=== PATIENT | female | born 1960 | race Caucasian/White ===

== ENCOUNTER 2017-02-16 20:00 | Emergency (ER) | payer OTHER ==
[~2017-02-16] VITALS: Ht 162.6 cm; Wt 53.5 kg
[2017-02-16 21:04] LABS: BASOPHIL % 0.7 % (0-2); PLATELET COUNT 239 x10^3mcL (130-400)
[2017-02-16 21:06] LABS: RED CELL DISTRIBUTION WIDTH 14.8 % (11.5-14.5)
[2017-02-16 21:11] LABS: CALCIUM 9.1 mg/dL (8.5-10.1); CARBON DIOXIDE 25.7 mmol/L (21-32); CREATININE SERUM 1.1 mg/dL (0.6-1.0); POTASSIUM SERUM 3.4 mmol/L (3.5-5.1)
[2017-02-16 21:15] LABS: ALBUMIN 3.8 g/dL (3.4-5.0); BILIRUBIN TOTAL 0.41 mg/dL (0.20-1.00)
[2017-02-16 21:27] LABS: UA SPECIFIC GRAVITY 1.025 (1.005-1.035); microscopic required? YES; urine erythrocyte 2+ (NEGATIVE)
[2017-02-16 22:27] VITALS: BP 120/82
== END 2017-02-16 22:27 | disposition home or self-care (01) ==
LOC: ED 20:00
PROVIDERS: Emergency Medicine
DX: M79.1 Myalgia (principal); R53.1 Weakness; R51 Headache; I25.2 Old myocardial infarction; Z79.899 Other long term (current) drug therapy; Z88.0 Allergy status to penicillin
CPT/HCPCS: 36415; J1885; Q0092

== ENCOUNTER 2017-12-02 13:49 | Emergency (ER) | payer OTHER ==
[~2017-12-02] VITALS: Ht 162.6 cm; Wt 54.4 kg
[2017-12-02 14:11] VITALS: Ht 162.6 cm; Wt 54.4 kg
[2017-12-02 15:10] VITALS: BP 97/55
== END 2017-12-02 15:10 | disposition home or self-care (01) ==
LOC: ED 13:49
DX: J20.9 Acute bronchitis, unspecified (principal); Z88.0 Allergy status to penicillin

== ENCOUNTER 2018-01-14 10:51 | Emergency (ER) | payer OTHER ==
[~2018-01-14] VITALS: Ht 162.6 cm; Wt 52.2 kg
[2018-01-14 11:15] VITALS: Ht 162.6 cm; Wt 52.2 kg
[2018-01-14 12:29] VITALS: BP 121/78
== END 2018-01-14 12:29 | disposition home or self-care (01) ==
LOC: ED 10:51
DX: S42.001A Fracture of unspecified part of right clavicle, initial encounter for closed fracture (principal); I10 Essential (primary) hypertension; E78.00 Pure hypercholesterolemia, unspecified; Z88.0 Allergy status to penicillin; V19.9XXA Pedal cyclist (driver) (passenger) injured in unspecified traffic accident, initial encounter; Y93.89 Activity, other specified; Y92.89 Other specified places as the place of occurrence of the external cause; Y99.8 Other external cause status

== ENCOUNTER 2019-08-28 20:20 | Inpatient (IN) | payer MEDICAID ==
[~2019-08-28] VITALS: Ht 162.6 cm; Wt 56.7 kg
--- NOTE | 2019-08-28 20:44 | NUR ---
DAUGHTER, KAREN, STATING IF DR NEEDS ANY INFO/QUESTIONS TO PLEASE CALL HER AT [phone].
--- NOTE | 2019-08-28 21:00 | NUR ---
PATIENT SEEN WITH COMPLAINT OF EPIGASTRIC PAIN 1 HOUR LENS DOTTER. SEEN MOANING/GROANING. FAMILY REPORTS PATIENT WAS RECENTLY DISCHARGED FROM THE HOSPITAL, WAS TREATED FOR LIVER AND PANCREAS PROBLEM. PATIENT WAS SEEN BY . SALINE LOCK INSERED POST A FEW ATTEMPTS. PATIENT MEDICATED WITH S/L ZOFRAN. SALINE FLUID IS INFUSING @ 150 ML/HR. PATIENT INSTRUCTED TO GIVE URINE SPECIMEN, BUT IA UNABLE TO VOID AT THIS TIME. PATIENT WAS MEDICATED WITH MORPHINE AND PEPCID.
[2019-08-28 21:34] LABS: BASOPHIL % 0.1 % (0-2); CALCIUM 8.4 mg/dL (8.5-10.1); CARBON DIOXIDE 29.4 mmol/L (21-32); CHLORIDE SERUM 100 mmol/L (98-107); CREATININE SERUM 0.9 mg/dL (0.6-1.0); GFR1 > 60 mL/min; GLUCOSE SERUM 160 mg/dL (74-106); PLATELET COUNT 294 x10^3mcL (130-400); POTASSIUM SERUM 4.5 mmol/L (3.5-5.1); SODIUM SERUM 135 mmol/L (136-145)
[2019-08-28 21:36] LABS: RED CELL DISTRIBUTION WIDTH 24.8 % (11.5-14.5)
[2019-08-28 21:43] LABS: ALKALINE PHOSPHATASE 197 U/L (46-116); ALT/SGPT 297 U/L (14-59); BILIRUBIN TOTAL 5.82 mg/dL (0.20-1.00); LIPASE 614 IU/L (73-393); TOTAL PROTEIN, SERUM 7.9 g/dL (6.4-8.2)
[2019-08-28 21:44] LABS: ALBUMIN 2.7 g/dL (3.4-5.0)
[2019-08-28 21:45] LABS: AST/SGOT 199 U/L (15-37)
[2019-08-28 21:59] LABS: rbc morphology (normal/abnorm) ABNORMAL (NORMAL)
--- NOTE | 2019-08-28 22:44 | NUR ---
PATIENT IS RESTING, CARDIAC SCOPE IS SINUS WITH PVC'S.
--- NOTE | 2019-08-28 23:12 | NUR ---
PATIENT IS SLEEPING, NO DISTRESS.
--- NOTE | 2019-08-29 00:03 | NUR ---
PATIENT WOKE UP, AND CALL ON THE [facility] TO SAY SHE IS IN PAIN. PATIENT CLAIM, THE PAIN MEDICATION DID NOT HELP. HOWEVER SHE WAS SLEEPING. PATIENT EXPRESS 10/10 PAIN SCALE. NOTIFIED.
[2019-08-29 01:00] LABS: T3 TOTAL 0.9 ng/mL
[2019-08-29] MEDS ORDERED: FOSAMAX70 M1 PO (01:00)
[2019-08-29] MEDS ORDERED: COUMADIN3 MG PO (01:01)
[2019-08-29] MEDS ORDERED: METOPROLOL SUCC25 M2 PO (01:03)
[2019-08-29] MEDS ORDERED: COUMADIN5 MG PO (01:04)
[2019-08-29] MEDS ORDERED: DIGOX0.125 MG PO (01:05)
[2019-08-29] MEDS ORDERED: CETIRIZINE HYDR10 MG PO (01:06)
[2019-08-29] MEDS ORDERED: FLONS (01:07)
--- NOTE | 2019-08-29 01:17 | NUR ---
REPORT WAS GIVEN TO SWAPNA. MED RECON WAS DONE. PATIENT WILL BE TRANSPORTED TO ROOM 236B. 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 USE ASSISTIVE DEVICE.
--- NOTE | 2019-08-29 01:19 | NUR ---
PATIENT HAS NOT YET VOID FOR UA COLLECTION.
[2019-08-29 01:29] LABS: FREE T4 1.04 ng/dL (0.76-1.46); FREE THYROXINE INDEX 2.7 ug/dL (1.4-4.5); T4(THYROXINE) 8.2 ug/dL (4.7-13.3)
--- NOTE | 2019-08-29 02:12 | NUR ---
PATIENT WENT TO XRAY AND RETURN TO THE ROOM
--- NOTE | 2019-08-29 02:28 | NUR ---
PATIENT ARRIVED FROM ED VIA [facility] ACCOMPANIED BY ED NURSE. BELONGINGS AT BEDSIDE. POOR HISTORIAN. PATIENT ASSISTED TO BATHROOM; AMBULATORY WITH ASSISTANCE. UNSTEADY AND SLOW GAIT NOTED. 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 A/OX4. ABLE TO MAKE NEEDS KNOWN. CLEAR AND APPROPAITE SPEECH NOTED. RIGHT SIDED FACIAL DROOP NOTED. DENIES DIZZINESS AND SR. BREATHING EVEN AND UNLABORED ON ROOM AIR. NO SOB OR RESP DISTRESS NOTED. DENIES CHEST PAIN. TELE #31, AFIB, HR 89. PATIENT DOES NOT REMEMBER IF SHE HAS A HX OF AFIB. DR PACHECO NOTIFIED. DENIES PALPITATIONS. LEFT SIDED PACEMAKER. ABD DISTENTION NOTED, ABD SOFT. DENIES N/V AT THIS TIME. EDUCATED PATIENT ON NPO STATUS. IV TO THE LAC, 22G, INFUSING NS FROM ED. PATENT AND INTACT. NO REDNESS OR SWELLING NOTED. COMFORT AND SAFETY MEASURES IN PLACE. BED IS LOCKED AND IN THE LOWEST POSITION. SIDE RAILS UP X2. ORIENTED PATIENT TO ROOM, CALL LIGHT SYSTEM AND BED CONTROLS. CALL LIGHT IS WITHIN REACH. WILL CONTINUE TO MONITOR.
--- NOTE | 2019-08-29 03:04 | NUR ---
NOTIFIED DR PACHECO ABOUT CT ABD/PELVIS RESULTS. NO NEW ORDERS AT THIS TIME
[2019-08-29 03:36] VITALS: BP 127/70
[2019-08-29 04:08] LABS: microscopic required? NO
[2019-08-29 04:11] LABS: urine erythrocyte NEGATIVE (NEGATIVE)
[2019-08-29 05:51] VITALS: BP 96/63
--- NOTE | 2019-08-29 06:19 | NUR ---
C/O 6/10 EPIGASTRIC PAIN. TORADOL IVP GIVEN. NO DISTRESS NOTED. MED EDUCATION GIVEN. WILL CONTINUE TO MONITOR.
--- NOTE | 2019-08-29 06:43 | NUR ---
RESTED SINCE ARRIVAL. NO DISTRESS NOTED. BREATHING EVEN AND UNLABORED ON ROOM AIR. NO SOB NOTED. DENIES N/V. IVF INFUSING WELL. DENIES CHEST PAIN. ALL NEEDS AND CONCERNS ADDRESSED. SAFETY MEASURES IN PLACE. CALL LIGHT IS WITHIN REACH. WILL ENDORSE CARE TO DAY SHIFT RN.
--- NOTE | 2019-08-29 07:30 | NUR ---
SEEN IN BED AWAKE,ALERT, ORIENTED X3. SLOW BUT CLEAR SPEECH, RIGHT FACIAL DROOP. GEN BODY WEAKESS, GREATHER ON RIGHT SIDE FROM PREVIOUS HX OF CVA. ON TELE# 31 AFIB, PACE ON DEMAND, HR=85. DENIES CHEST PAIN. STATED ABDN PAIN IS RELIEF FROM TORADOL GIVEN. KEPT NPO, PATIENT MADE AWARE. IVF NS TO LAC INFUSING WELL. CALL LIGHT PLACED WITHIN EASY REACH, SIDERAILS UP X2.
[2019-08-29 08:35] VITALS: BP 99/64
--- NOTE | 2019-08-29 11:40 | NUR ---
SEEN BY DOCTOR WARREN, PATIENT STATED THAT SHE UNDERSTAND THE PLAN OF CARE AND DOCTOR ALREADY EXPLAINED TO HER REGUARDING ENDOSCOPIC RETROGRADE CHOLANGIOPANCREATOGRAPHY. CONSENT SIGNED BY PATIENT WHO IS AWAKE, ALERT, ORIENTED X4.
--- NOTE | 2019-08-29 11:57 | NUR ---
SPOKE WITH DR KELLEY PER PHONE. DR HAD SEEN PATIENT 1 HOUR AGO AND ORDERED ERCP FOR FRIDAY. 20 MIN LATER HE CALLED AND INFORMED NURSING STAFF THAT HE WILL DO THE ERCP TODAY AT NOON. PATIENT HAD ALREADY DRUNK PO CONTRAST FOR SB FOLLOW-UP THROUGH. DR BUSBY WAS CALLED AND NOTIFIED. HE CANCELLED THE ERCP FOR TODAY. ERCP WILL NOW BE DONE ON Friday08/31/19.
[2019-08-29 12:26] VITALS: BP 116/77
--- NOTE | 2019-08-29 15:16 | NUR ---
REGULAR DIET PROVIDED PER DOCTOR'S ORDER. DENIES PAIN OR NAUSEA.
[2019-08-29 17:43] VITALS: BP 101/54
--- NOTE | 2019-08-29 18:32 | NUR ---
TOLERATED TO REGULAR DIET. DENIES ABDN PAIN OR NAUSEA AT THIS TIME. ABLED TO AMBULATE TO BATHROOM WITH SLOW/STEADY GAIT. HEPARIN SQ PROPHYLAXIS GIVEN PER DOCTOR'S ORDER. VSS. ALL NEEDS ATTENDED.
--- NOTE | 2019-08-29 19:05 | NUR ---
REPORT RECEIVED FROM DAY SHIFT RN. PATIENT WAS SEEN SITTING ON BEDSIDE CHAIR. NO DISTRESS NOTED. BREATHING EVEN AND UNLABORED. NO SOB OR RESP DISTRESS NOTED. ON ROOM AIR. DENIES CHEST PAIN. NO C/O PAIN. DENIES N/V. IV TO THE LAC INFUSING WELL. PATENT AND INTACT. NO REDNESS OR SWELLING NOTED. COMFORT AND SAFETY MEASURES IN PLACE. BED IS LOCKED AND IN THE LOWEST POSITION. SIDE RAILS UP X2. CALL LIGHT IS WITHIN REACH. WILL CONTINUE TO MONITOR
--- NOTE | 2019-08-29 20:00 | NUR ---
PATIENT IS AFIB WITH RVR, HR SUSTAINING B/W 110-130. CHECKED ON PATIENT. PATIENT MOVED FROM BEDSIDE CHAIR TO BED. RESTING IN BED COMFORTABLY. NO DISTRESS NOTED. DENIES CHEST PAIN/PRESSURE. WILL CONTINUE TO MONITOR. PATIENT.
[2019-08-29 20:04] VITALS: BP 107/65
--- NOTE | 2019-08-29 20:10 | NUR ---
BP CHECKED 107/65 (75). HR B/W 80-130. NO DISTRESS NOTED. DENIES CHEST PAIN. CHARGE NURSE AWARE. WILL CONTINUE TO MONITOR.
--- NOTE | 2019-08-29 20:20 | NUR ---
DR PACHECO NOTIFIED ABOUT AFIB RVR AND HR.
--- NOTE | 2019-08-29 22:10 | NUR ---
STAT EKG DONE. NOTIFIED DR PACHECO AND YOVANI. NO NEW ORDERS AT THIS TIME. PATIENT DENIES CHEST PAIN/PRESSURE. WILL CONTINUE TO MONITOR PATIENT.
--- NOTE | 2019-08-30 00:47 | NUR ---
RESTING IN BED WITH EYES CLOSED. NO DISTRESS NOTED. NO S/S OF PAIN NOTED. BREATHING EVEN AND UNLABORED ON ROOM AIR. IVF INFUSING WELL. SAFETY MEASURES IN PLACE. CALL LIGHT IS WITHIN REACH. WILL CONTINUE TO MONITOR.
--- NOTE | 2019-08-30 03:04 | NUR ---
RESTING IN BED WITH EYES CLOSED. NO DISTRESS NOTED. BREATHING EVEN AND UNLABORED. NO SOB NOTED. IVF INFUSING WELL. SAFETY MEASURES IN PLACE. NO DISTRESS NOTED HR 107. CALL LIGHT IS WITHIN REACH. WILL CONTINUE TO MONITOR
[2019-08-30 04:32] VITALS: BP 94/61
--- NOTE | 2019-08-30 05:42 | NUR ---
DR SHEETS CALLED, HE WILL DO THE ERCP TODAY. PER SUDEEP, HEPARIN WILL BE ON HOLD. PATIENT IS NPO AT THIS TIME. DR PACHECO IS AWARE.
--- NOTE | 2019-08-30 06:45 | NUR ---
RESTING IN LONG INTERVALS THROUGHOUT THE NIGHT. NO ACUTE CHANGES NOTED. BREATHING EVEN AND UNLABORED. DENIES SOB AND CHEST PAIN. NO C/O PAIN. IVF INFUSING WELL. HR 94. NPO AT THIS TIME FOR POSS ERCP TODAY. SAFETY MEASURES IN PLACE. ALL NEEDS AND CONCERNS ADDRESSED. CALL LIGHT IS WITHIN REACH. WILL ENDORSE CARE TO DAY SHIFT RN.
[2019-08-30 06:54] LABS: BASOPHIL % 0.1 % (0-2); PLATELET COUNT 218 x10^3mcL (130-400)
[2019-08-30 07:05] LABS: RED CELL DISTRIBUTION WIDTH 24.5 % (11.5-14.5)
--- NOTE | 2019-08-30 07:10 | NUR ---
SEEN IN BED AWAKE,ALERT, ORIENTEDX3. NO RESP DISTRESS NOTED ON ROOM AIR. TELE#31 AFIB XS=345. GEN BODY WEAKNESS, GREATHER ON RIGHT SIDED FROM PREVIOUS HX OF CVA. ABLE TO AMBULATE WITH SLOW STEADY GAIT TO BATHROOM. STATED VOIDS FREELY. KEPT NPO. IVF NS TO LAC INFUSING WELL AT 70ML/HR. CALL LIGHT PLACED WITHIN EASY REACH. SIDERAILS UP X2.
[2019-08-30 07:33] VITALS: BP 107/73
[2019-08-30 07:33] LABS: CALCIUM 8.1 mg/dL (8.5-10.1); CARBON DIOXIDE 24.4 mmol/L (21-32); CHLORIDE SERUM 105 mmol/L (98-107); CREATININE SERUM 0.7 mg/dL (0.6-1.0); GFR1 > 60 mL/min; GLUCOSE SERUM 95 mg/dL (74-106); PHOSPHOROUS 3.5 mg/dL (2.5-4.9); POTASSIUM SERUM 3.9 mmol/L (3.5-5.1); SODIUM SERUM 137 mmol/L (136-145)
[2019-08-30 10:19] LABS: rbc morphology (normal/abnorm) ABNORMAL (NORMAL)
[2019-08-30 10:21] LABS: ovalocyte/elliptocyte 1+
--- NOTE | 2019-08-30 11:33 | NUR ---
UPDATED CURRENT CONDITION AND PLAN OF CARE TO PATIENT'S DAUGHTER LORENZO.
[2019-08-30 11:59] VITALS: BP 95/55
--- NOTE | 2019-08-30 13:55 | NUR ---
PATIENT AND HER SPOUSE MADE AWARE THAT ERCP IS SCHEDULED TODAY AT 18:00PM. KEPT NPO. DENIES PAIN, STATED JUST HUNGRY. IVF NS CONTINUED AT 70ML/HR.
[2019-08-30 16:00] VITALS: BP 101/59
--- NOTE | 2019-08-30 17:09 | NUR ---
NO ANY DISTRESS THROUGHOUT SHIFT. DENIES CHEST PAIN OR CHEST PRESSURE. AFIB WITH OCCATIONAL RVR, DOCTOR ANDREA MADE AWARE. KEPT NPO FOR ERCP. BRP. IVF NS TO LAC INFUSING WELL.
--- NOTE | 2019-08-30 17:26 | NUR ---
Discount pharmacy card and list to low cost medical clinics given to patient by Damion Healy.
--- NOTE | 2019-08-30 17:52 | NUR ---
OFF FLOOR VIA [facility] TO OR. NO ANY DISTRESS NOTED.
--- NOTE | 2019-08-30 19:30 | NUR ---
RECEIVED PT FROM OR,S/P ERCP. ALERT AND ORIENTED. KEPT COMFORTABLE IN BED. RESP. EVEN AND UNLABORED. ON ROOM AIR, LUNG SOUNDS CLEAR BILAT. ON ROOM AIR, NO ACUTE DISTRESS NOTED. DENIES CP OR ANY DISCOMFORT AT THIS TIME. AFIB ON THE MONITOR. AFEBRILE AND VITAL SIGNS STABLE. IVF, NS AT 70ML/HR, INTACT AND INFUSING VIA LAC, SITE CLEAR. FAMILY AT THE BEDSIDE. SANDWICH AND JUICE GIVEN. CALL LIGHT WITHIN REACH. WILL CONTINUE TO MONITOR.
[2019-08-30 20:14] VITALS: BP 116/72
--- NOTE | 2019-08-31 02:03 | NUR ---
RESTING QUIETLY IN BED, WITH EYES CLOSED, APPEARS ASLEEP, EASILY AROUSABLE. RESP. EVEN AND UNLABORED. ON ROOM AIR, NO ACUTE DISTRESS NOTED. CALL LIGHT WITHIN REACH. WILL CONTINUE TO MONITOR.
[2019-08-31 05:19] VITALS: BP 101/64
--- NOTE | 2019-08-31 06:15 | NUR ---
SLEPT WELL. NO SIGNIFICANT CHANGE NOTED IN PT,S CONDITION. DUE MEDS GIVEN ORDERED, AMY. WELL. AFEBRILE AND VITAL SIGNS STABLE. RESP. EVEN AND UNLABORED. NO ACUTE DISTRESS NOTED. IVF INTACT AND INFUSING WELL, SITE CLEAR. VOIDING FREELY. HAD X1 LOOSE BM. KEPT COMFORTABLE. CALL LIGHT WITHIN REACH. WILL CONTINUE TO MONITOR.
[2019-08-31 06:31] LABS: BASOPHIL % 0.2 % (0-2); PLATELET COUNT 193 x10^3mcL (130-400)
[2019-08-31 06:44] LABS: RED CELL DISTRIBUTION WIDTH 24.1 % (11.5-14.5)
--- NOTE | 2019-08-31 07:20 | NUR ---
SEEN AOX4, R SIDED FACIAL DROOP WITH R SIDED WEAKNESS, TELE 31, AFIB , NO CHEST PAIN, PALPABLE PULSES, EDEMA B/L, 3+, CTA ON BLF, ON ROOM AIR, ACTIVE BS, LAST BM 08/30/19, VOID WITH NO DYSURIA, GENERALIZED WEAKNESS, LIMITED ROM , RUE AND RLE, ECCHYMOSIS NOTED ON BUE, NO PAIN AT THIS TIME, IV NS INFUSING AT 70CC/HR AT LAC , NO REDNESS OR INFILTRATION. CALL LIGHT WITHIN REACH. BED AT LOWEST POSITION.
[2019-08-31 07:56] LABS: ALKALINE PHOSPHATASE 172 U/L (46-116); ALT/SGPT 263 U/L (14-59); AST/SGOT 252 U/L (15-37); BILIRUBIN TOTAL 5.5 mg/dL (0.20-1.00); CALCIUM 8.2 mg/dL (8.5-10.1); CARBON DIOXIDE 25.2 mmol/L (21-32); CHLORIDE SERUM 107 mmol/L (98-107); CREATININE SERUM 0.8 mg/dL (0.6-1.0); GFR1 > 60 mL/min; GLUCOSE SERUM 76 mg/dL (74-106); LIPASE 572 IU/L (73-393); POTASSIUM SERUM 3.9 mmol/L (3.5-5.1); SODIUM SERUM 139 mmol/L (136-145); TOTAL PROTEIN, SERUM 6.6 g/dL (6.4-8.2)
[2019-08-31 08:02] LABS: ALBUMIN 2.2 g/dL (3.4-5.0)
[2019-08-31 09:04] VITALS: Ht 162.6 cm; Wt 56.7 kg
[2019-08-31 09:08] VITALS: BP 97/59
--- NOTE | 2019-08-31 09:18 | NUR ---
SEEN AOX4, NOT IN DISTRESS, NO SUBJECTIVE COMPLAINTS, PO MEDICATIONS GIVEN, FLUTICASON INTRANASAL SPRAY APPLIED TO NARES.
--- NOTE | 2019-08-31 09:36 | NUR ---
PAGED DR RUIZ FOR LOW CALCIUM RESULTS 8.2. WAITING FOR CALLBACK
[2019-08-31 09:45] LABS: rbc morphology (normal/abnorm) ABNORMAL (NORMAL); target cell (codocyte) 2+; tear drop cell (dacryocyte) 1+
[2019-08-31] MEDS ORDERED: IMURAN50 MG PO (12:53)
[2019-08-31 13:12] VITALS: BP 97/59
[2019-08-31 13:24] VITALS: BP 105/61
--- NOTE | 2019-08-31 14:00 | NUR ---
SEEN AOX4, NO COMPLAINTS OF PAIN, HEPARIN SQ GIVEN AT ABD
[2019-08-31] MEDS ORDERED: GOOD SENSE OMEP20 MG PO (14:04)
--- NOTE | 2019-08-31 15:00 | NUR ---
DISCHARGE INSTRUCTIONS GIVEN. INSTRUCTED TO FF UP WITH PCP WITHIN 1 WEEK, INSTRUCTED TO TAKE PRESCRIPTION PAD TO PHARMACY FOR MEDICATIONS. MADE SURE TO KEEP BELONGINGS WITH PATIENT. PATIENT DISCHARGED WITH INVENTORY WORKER AND AT 1500.
--- NOTE | 2019-08-31 15:00 | NUR ---
TELE MONITOR 31 REMOVED AND GIVEN TO TITLE INSURANCE AGENT ELENA
== END 2019-08-31 15:00 | disposition home or self-care (01) | DRG 720 ==
LOC: ED 20:20 → DU 08-29 00:17 → MU 08-29 00:17 → DU 08-29 02:27
PROVIDERS: Emergency Medicine; Internal Medicine; ADMIT Family Medicine
PROC: 0FJD8ZZ Inspection of Pancreatic Duct, Via Natural or Artificial Opening Endoscopic (ICD-10-PCS; principal; 2019-08-30 18:00)
DX: A41.9 Sepsis, unspecified organism (principal); E43 Unspecified severe protein-calorie malnutrition; K56.609 Unspecified intestinal obstruction, unspecified as to partial versus complete obstruction; K85.90 Acute pancreatitis without necrosis or infection, unspecified; K75.4 Autoimmune hepatitis; K29.70 Gastritis, unspecified, without bleeding; E78.5 Hyperlipidemia, unspecified; I10 Essential (primary) hypertension; M81.0 Age-related osteoporosis without current pathological fracture; I25.2 Old myocardial infarction; Z95.0 Presence of cardiac pacemaker; Z86.73 Personal history of transient ischemic attack (TIA), and cerebral infarction without residual deficits
CPT/HCPCS: 43260; 83516; 83880; 84439; 90658; C1769; C9113; G0378; J1610; J1644; J1885; J1956; J2270; J2704; J3490; J7030; J7120; Q0092; Q0162; Q9967